=== PATIENT | male | born 1955 | race Caucasian/White ===

== ENCOUNTER → 2018-06-07 | Outpatient (CLI) | payer OTHER | LOC: FIMAGING 13:30 | PROVIDERS: ATTEND Radiology Radiation Oncology | DX: C49.22 Malignant neoplasm of connective and soft tissue of left lower limb, including hip (principal) ==

== ENCOUNTER 2018-12-14 09:12 | Day surgery (SDC) | payer OTHER ==
[2018-12-14] MEDS ORDERED: NALOXONE HCL 0.4 MG/ML INJ IVP PRN (09:16)
[2018-12-14] MEDS ORDERED: FLUMAZENIL 0.5 MG/5 ML MDV IVP PRN (09:16)
[2018-12-14] MEDS ORDERED: fentaNYL 100 MCG/2 ML INJ IVP PRN (09:16)
[2018-12-14] MEDS ORDERED: MIDAZOLAM 2 MG/2 ML VIAL IVP PRN (09:16)
[2018-12-14] MEDS ORDERED: ceFAZolin 2 GM/DEXTROSE 100 ML IV ONE (09:16)
[2018-12-14] MEDS ORDERED: NS 1,000 ML IV SCH (09:30)
[2018-12-14 10:11] LABS: INR 1.01 (0.83-1.16); PROTIME(PATIENT) 12.9 SEC (12.0-15.0)
--- NOTE | 2018-12-14 10:19 | PDPROPOC ---
Sedation Plan of Care Sedation Plan of Care: vital signs stable, mental status noted, patient educated of risks, benefits, alternatives, patient can tolerate sedation ASA Classification: ASA 2 Planned drugs: fentanyl, midazolam Mallampati Score: Class 2 Mallampati Reference Image: Patient passed 3-3-2 rule?: Yes
--- NOTE | 2018-12-14 10:20 | PDRADPRE ---
Radiology History & Physical Indication for procedure: cancer (Lung cancer, chest port placement for chemotherapy) Home medications: Atorvastatin Calcium 1 tab PO DAILY 12/10/18 [Last Taken 12/13/18] Oxycontin 10 mg PO PRN PRN 12/10/18 [Last Taken 12/13/18] Allergies/Adverse Reactions: No Known Allergies Allergy (Unverified 12/10/18 13:09) Mental status: A&Ox3 Heart exam: regular rate and rhythm Lungs exam: clear to auscultation Mallampati Score: Class 2
[2018-12-14] MEDS ORDERED: LIDO/EPI 1% **for epidural** 30 ML SDV ONE (10:45)
[2018-12-14] MEDS ORDERED: LIDOCAINE 1% 300 MG/30 ML SDV ONE (10:46)
[2018-12-14] MEDS ORDERED: MIDAZOLAM 2 MG/2 ML VIAL ONE (11:24)
[2018-12-14] MEDS ORDERED: ONDANSETRON 4 MG/2 ML VIAL IVP PRN (11:46)
[2018-12-14] MEDS ORDERED: OXYCODONE/APAP 5/325 TAB PO PRN (11:46)
[2018-12-14] MEDS ORDERED: ACETAMINOPHEN 325 MG TAB PO PRN (11:46)
--- NOTE | 2018-12-14 11:48 | PDRADPN ---
Radiology Procedure Note Date of Procedure: 12/14/18 Radiologist: Jarrell Lara Anesthesia: IV Sedation Pre-op Diagnosis: Lung CA Post-op Diagnosis: Lung CA Indication: Need for offc spec central access for chemo Procedure: Chest port placement Finding(s): Successful placment of 8 Fr Power port. Ok to use now. Inf/Abcess present in the surg proc area at time of surgery?: No
[2018-12-14 13:01] VITALS: BP 152/64
== END 2018-12-14 12:55 | disposition home or self-care (01) ==
LOC: FIMAGING 09:12
PROVIDERS: ATTEND Radiology Vascular & Interventional Radiology
PROC: B543ZZA Ultrasonography of Right Jugular Veins, Guidance (ICD-10-PCS; principal; 2018-12-14 11:47)
PROC: 02HV33Z Insertion of Infusion Device into Superior Vena Cava, Percutaneous Approach (ICD-10-PCS; principal; 2018-12-14 11:47)
PROC: 0JH60XZ Insertion of Tunneled Vascular Access Device into Chest Subcutaneous Tissue and Fascia, Open Approach (ICD-10-PCS; principal; 2018-12-14 11:47)
PROC: B5161ZA Fluoroscopy of Right Subclavian Vein using Low Osmolar Contrast, Guidance (ICD-10-PCS; principal; 2018-12-14 11:47)
DX: C49.21 Malignant neoplasm of connective and soft tissue of right lower limb, including hip (principal)
CPT/HCPCS: 36561; 76937; 99152; C1769; J0690; J1642; J2250; J2310; J3010

== ENCOUNTER → 2019-02-18 | Outpatient (CLI) | payer OTHER | LOC: FIMAGING 16:16 ==